=== PATIENT | female | born 1985 | race Caucasian/White ===

== ENCOUNTER 2018-06-09 09:12 | Emergency (ER) | payer MEDICAID ==
[~2018-06-09] VITALS: Ht 157.5 cm; Wt 75.0 kg
[2018-06-09 13:32] VITALS: BP 107/68
[2018-06-09] MEDS: IBUPROFEN 800MG TABLET PO ONE (13:32)
== END 2018-06-09 13:43 | disposition home or self-care (01) ==
LOC: ER 09:12
DX: S39.012A Strain of muscle, fascia and tendon of lower back, initial encounter (principal); W11.XXXA Fall on and from ladder, initial encounter; Y93.89 Activity, other specified; Y92.89 Other specified places as the place of occurrence of the external cause; Y99.8 Other external cause status; Z98.51 Tubal ligation status; Z98.890 Other specified postprocedural states
CPT/HCPCS: 99282